=== PATIENT | female | born 1975 | race Caucasian/White ===

== ENCOUNTER 2021-11-02 00:24 | Day surgery (SDC) | payer OTHER, BC, SELFPAY ==
[2021-10-20 12:12] VITALS: BMI 36.8
--- NOTE | 2021-10-20 13:17 | PC.NURSE ---
UPON PREOP INSTRUCTIONS, PT INSTRUCTED THAT MAGNESIUM CITRATE IS ON RECALL AND PT SHOULD NOT TAKE DIRECTED PER BOWEL PREP INSTRUCTIONS. PT STATES UNDERSTANDING.
--- NOTE | 2021-11-01 10:55 | PM.HPGS ---
History of Present Illness History of Present Illness Consent: Risks, benefits, and alternatives have been discussed and questions answered. Patient agrees to proceed with procedure. Chief complaint: neoplasm screening Narrative: Savanah Whitaker is a 46 year old female referred for colon cancer screening. A grandparent had colon cancer.She has had surgery for extensive endometriosis. Review of Systems Review of Systems: All systems reviewed & are unremarkable except as noted in HPI and below PMFSH Past Medical History Medical History Endometriosis Hypertension Obesity Family History Family History Father Depression Heart disease Mother Ovarian ca Thyroid disorder Grandparent Carcinoma of colon Social History Social History Smoking packs per day: 0.5 Smoking cigarettes per day: 10.0 Years smoked: 5 Smoking pack-years: 2.50 Smoking status: Former smoker Tobacco type: cigarettes Second hand tobacco smoke exposure: No Alcohol intake: current Drinks per week: 3 Alcohol use details: WINE/SELTZER Substance use: never Substance use type: does not use Living arrangements: with family Gender identity (if verbalized by the patient): Female Spiritual care concerns: No Meds Home Medications and Allergies Home Medications Medication Instructions Recorded Confirmed Type bupropion HCl 300 mg 24 hr tablet, 300 mg PO QAM 08/30/21 10/20/21 History extended release cyclobenzaprine 10 mg tablet 10 mg PO .prn PRN Muscle Spasm 08/30/21 10/20/21 History norethindrone acetate 5 mg tablet 10 mg PO BID 08/30/21 10/20/21 History semaglutide 3 mg tablet (Rybelsus) 7 mg PO DAILY 08/30/21 10/20/21 History spironolactone 100 mg tablet 100 mg PO QAM 08/30/21 10/20/21 History amlodipine 5 mg tablet 5 mg PO DAILY 10/20/21 10/20/21 History ergocalciferol (vitamin D2) 1,250 100,000 unit PO DAILY 10/20/21 10/20/21 History mcg (50,000 unit) capsule levothyroxine 112 mcg tablet 112 mcg PO DAILY 10/20/21 10/20/21 History (Synthroid) Allergies Allergy/AdvReac Type Severity Reaction Status Date / Time fluoxetine Allergy Unknown rash Verified 11/02/21 07:26 naproxen AdvReac Unknown unknown Verified 11/02/21 07:26 [From Flanax (naproxen)] Exam Resp: Auscultation: clear to auscultation bilaterally Cardio: Rate: regular rate Rhythm: regular rhythm GI: GI Palp: Yes Soft to palpation and No Tenderness to palpation present (GI) Assessment and Plan Assessment and plan (1) Colon cancer screening: Code(s): Z12.11 - Encounter for screening for malignant neoplasm of colon Status: Acute Assessment and Plan: Colonoscopy with possible biopsy or polypectomy or cautery or injection of substances.
--- NOTE | 2021-11-01 13:39 | P.PNAN_ITS ---
Anes - Initial Pre Proc Eval Procedure: Operation Date: 11/02/21 08:30 Proposed Procedures p Screening Colonoscopy - Raymon Livingston MD Date/Time: 11/01/21 13:39 Surgeon: Raymon Livingston MD Pre Op Diagnosis: neoplasm screening Patient Data Age: 46 Gender: F Height: 1.75 m Weight: 113 kg Allergies Allergy/AdvReac Type Severity Reaction Status Date / Time fluoxetine Allergy Unknown rash Verified 11/02/21 07:26 naproxen AdvReac Unknown unknown Verified 11/02/21 07:26 [From Flanax (naproxen)] Home Medications Medication Instructions Recorded Confirmed Type bupropion HCl 300 mg 24 hr tablet, 300 mg PO QAM 08/30/21 10/20/21 History extended release cyclobenzaprine 10 mg tablet 10 mg PO .prn PRN Muscle Spasm 08/30/21 10/20/21 History norethindrone acetate 5 mg tablet 10 mg PO BID 08/30/21 10/20/21 History semaglutide 3 mg tablet (Rybelsus) 7 mg PO DAILY 08/30/21 10/20/21 History spironolactone 100 mg tablet 100 mg PO QAM 08/30/21 10/20/21 History amlodipine 5 mg tablet 5 mg PO DAILY 10/20/21 10/20/21 History ergocalciferol (vitamin D2) 1,250 100,000 unit PO DAILY 10/20/21 10/20/21 History mcg (50,000 unit) capsule levothyroxine 112 mcg tablet 112 mcg PO DAILY 10/20/21 10/20/21 History (Synthroid) Patient hx anesthesia problems: none Family hx anesthesia problems: none Results Review: All pre-operative results and documents have been reviewed as part of the pre- operative evaluation. [facility] Past Medical History Medical History (Updated 11/01/21 @ 13:39 by Asad Sharma MD) Endometriosis Hypertension Obesity Family History Family History Father Depression Heart disease Mother Ovarian ca Thyroid disorder Grandparent Carcinoma of colon Social History Social History Smoking packs per day: 0.5 Smoking cigarettes per day: 10.0 Years smoked: 5 Smoking pack-years: 2.50 Smoking status: Former smoker Tobacco type: cigarettes Second hand tobacco smoke exposure: No Alcohol intake: current Drinks per week: 3 Alcohol use details: WINE/SELTZER Substance use: never Substance use type: does not use Living arrangements: with family Gender identity (if verbalized by the patient): Female Spiritual care concerns: No Anes - Eval Final PreProcedure Day of Procedure 11/01/21 13:39 Patient weight: obese Heart: regular rate and rhythm Lungs: clear to auscultation and normal air movement Airway: Mallampati scale class II Neurological: alert and oriented Last oral intake: >/= 8 hours ASA classification: III Emergent: no Anesthetic plan: proceed Anesthesia type and monitoring: general GIVS Results Review: All pre-operative results and documents have been reviewed as part of the pre- operative evaluation. Informed Consent: The patient's anesthetic plan and its attendant risks and benefits were discussed with the patient/family/POA. Questions were solicited and answers provided to the satisfaction of the patient/family/POA.
[2021-11-02 07:28] VITALS: BP 132/77; PULSE 88; RESP 17; TEMP 36.2; O2SAT 100
[2021-11-02] MEDS: LACTATED RINGERS 1,000 ML 150 ML IV CONT (07:39)
[2021-11-02 08:48] VITALS: BP 122/75; PULSE 79; RESP 18; O2SAT 100
[2021-11-02 08:58] VITALS: BP 120/72; PULSE 84; RESP 21; O2SAT 100
[2021-11-02 09:08] VITALS: BP 126/77; PULSE 76; RESP 22; O2SAT 100
== END 2021-11-02 09:14 | disposition home or self-care (01) ==
PROVIDERS: PCP Student in an Organized Health Care Education/Training Program; Visit Provider Internal Medicine Gastroenterology
PROC: 0DJD8ZZ Inspection of Lower Intestinal Tract, Via Natural or Artificial Opening Endoscopic (ICD-10-PCS; CPT 45378; principal; 2021-11-02 08:30)
DX: Z12.11 Encounter for screening for malignant neoplasm of colon (principal); K57.30 Diverticulosis of large intestine without perforation or abscess without bleeding; E03.9 Hypothyroidism, unspecified; N80.9 Endometriosis, unspecified; I10 Essential (primary) hypertension; Z87.891 Personal history of nicotine dependence; E66.9 Obesity, unspecified; Z68.36 Body mass index [BMI] 36.0-36.9, adult
CPT/HCPCS: 45378; J2704; J7120